=== PATIENT | male | born 1980 | race Two or more races ===

== ENCOUNTER 2017-12-25 02:42 | Emergency (ER) | payer MEDICAID, OTHER ==
[~2017-12-25] VITALS: Ht 170.2 cm; Wt 118.2 kg
[~2017-12-25 02:42] MED LIST: FAMO40TA59 PO; NO HOME MEDS
[2017-12-25 03:08] VITALS: BP 136/97
== END 2017-12-25 04:50 | disposition home or self-care (01) ==
LOC: ER 02:43
DX: S00.81XA Abrasion of other part of head, initial encounter (principal); Z79.899 Other long term (current) drug therapy; Y04.0XXA Assault by unarmed brawl or fight, initial encounter; Y93.89 Activity, other specified; Y92.89 Other specified places as the place of occurrence of the external cause; Y99.8 Other external cause status
CPT/HCPCS: 99283

== ENCOUNTER 2020-04-19 13:20 | Observation (INO) | payer MEDICAID ==
[~2020-04-19] VITALS: Ht 170.2 cm; Wt 129.9 kg
[2020-04-19 15:13] LABS: BASOPHILS # (AUTO) 0.2 X10'3 (0-0.2); BASOPHILS % (AUTO) 1.1 % (0-1); EOSINOPHILS # (AUTO) 0.1 X10'3 (0-0.9); EOSINOPHILS % (AUTO) 0.5 % (0-6); HEMATOCRIT 48.3 % (42.0-52.0); HEMOGLOBIN 16.2 g/dl (14.0-17.9); LYMPHOCYTES # (AUTO) 2.2 X10'3 (1.1-4.8); LYMPHOCYTES % (AUTO) 14.4 % (21-51); MEAN CORPUSCULAR HEMOGLOBIN 29.1 PG (27.0-31.0); MEAN CORPUSCULAR HGB CONC 33.6 g/dL (33.0-36.5); MEAN CORPUSCULAR VOLUME 86.6 FL (78-98); MEAN PLATELET VOLUME 10.3 FL (7.4-10.4); MONOCYTES # (AUTO) 0.8 X10'3 (0-0.9); MONOCYTES % (AUTO) 5.2 % (2-12); NEUTROPHILS # (AUTO) 12.2 X10'3 (1.8-7.7); NEUTROPHILS % (AUTO) 78.8 % (42-75); PLATELET COUNT 299 X10'3 (140-440); RED BLOOD COUNT 5.58 X10'6 (4.70-6.10); RED CELL DISTRIBUTION WIDTH 12.9 % (11.5-14.5); WHITE BLOOD COUNT 15.4 X10'3 (4.5-11.0)
[2020-04-19 15:26] LABS: ALANINE AMINOTRANSFERASE 52 U/L (12-78); ALBUMIN 4.4 G/DL (3.4-5.0); ALBUMIN/GLOBULIN RATIO 1.1 (1.1-1.5); ALKALINE PHOSPHATASE 158 IU/L (46-116); ANION GAP 12 (8-16); ASPARTATE AMINO TRANSFERASE 18 U/L (10-37); BLOOD UREA NITROGEN 10 MG/DL (7-18); BUN/CREATININE RATIO 6.5 (5.4-32.0); CHLORIDE 91 MMOL/L (99-107); CREATININE 1.55 MG/DL (0.60-1.10); SODIUM 126 MMOL/L (135-145); TOTAL CARBON DIOXIDE 22.6 MMOL/L (24-32); TOTAL PROTEIN 8.5 G/DL (6.4-8.2); eGFR 50 ML/MIN
[2020-04-19 15:50] LABS: GLUCOSE 884 MG/DL (70-104)
[2020-04-19] MEDS ORDERED: normal saline 1000ml 1,000 ML IV SCH (15:55)
[2020-04-19] MEDS ORDERED: normal saline 1000ML IV soln IV ONE (15:55)
[2020-04-19] MEDS ORDERED: insulin regular, human 10 units/0.1 ml syringe IV ONE (15:55)
[2020-04-19] MEDS ORDERED: Insulin Reg/NS 100units/100mL 100 ML IV SCH (15:55)
[2020-04-19 16:20] LABS: CLARITY,URINE CLEAR (Clear); COLOR,URINE STRAW (Yellow); GLUCOSE, URINE >=1000 mg/dl (Neg); KETONES,URINE 15 mg/dl (Neg); LEUKOCYTE ESTERASE ,URINE NEGATIVE (Neg); NITRITES, URINE NEGATIVE (Neg); OCCULT BLOOD,URINE TRACE-INTACT (Neg); PH,URINE 5.5 (4.8-8.0); PROTEIN,URINE NEGATIVE (Neg); UROBILINOGEN,URINE 0.2 E.U/dL (0.2-1.0)
[2020-04-19 16:22] LABS: UA COLLECTION TYPE NON-SPECIFIED
[2020-04-19 16:26] LABS: URINE AMPHETAMINE SCREEN NEGATIVE (Neg); URINE BARBITUATE SCREEN NEGATIVE (Neg); URINE BENZODIAZEPINES SCREEN NEGATIVE (Neg); URINE CANNABINOID SCREEN POSITIVE (Neg); URINE COCAINE SCREEN NEGATIVE (Neg); URINE METHADONE SCREEN NEGATIVE (Neg); URINE OPIATE SCREEN NEGATIVE (Neg); URINE PHENCYCLIDINE SCREEN NEGATIVE (Neg)
[2020-04-19 16:27] LABS: BACTERIA,URINE FEW /HPF (Neg); RBC,URINE 0-2 /HPF (0-2); SQUAMOUS EPITHELIAL CELL,UR FEW /LPF (FEW); WBC,URINE 0-4 /HPF (0-4)
[2020-04-19 16:55] LABS: ABG HCO3 20.4 mmol/L (22.0-26.0); ABG OXYGEN SATURATION 93.4 % (94-97); ABG PO2 (T) 67.2 mmHg (75.0-100.0); ALLEN'S TEST POSITIVE; FCOHb 1.4 % (0.0-3.9); FMetHb 0.2 % (0.0-1.5); FO2Hb 91.9 % (94-97); PATIENT TEMPERATURE 37.1
[2020-04-19] MEDS ORDERED: dextrose 50%-water 50ml dispensing syringe IV PRN ×2 (19:20)
[2020-04-19] MEDS ORDERED: magnesium 4gm in 100ml NS 100 ML IV PRN (19:20)
[2020-04-19] MEDS ORDERED: ondansetron/PF 4mg/2ml inj IV PRN (19:20)
[2020-04-19] MEDS ORDERED: glucagon, human recombinant 1mg kit SUBCUT PRN (19:20)
[2020-04-19] MEDS ORDERED: HYDROcodone/acetaminophen 5mg/325mg tablet PO PRN (19:20)
[2020-04-19] MEDS ORDERED: potassium CL 10mEq/100ml bag 100 ML IV PRN ×2 (19:20)
[2020-04-19] MEDS ORDERED: HYDROcodone/acetaminophen 10/325mg tab PO PRN (19:20)
[2020-04-19] MEDS ORDERED: bisacodyl 10mg suppository rectal RC PRN (19:20)
[2020-04-19] MEDS ORDERED: mag hydrox/Alum hydrox/simeth 30ml oral suspension PO PRN (19:20)
[2020-04-19] MEDS ORDERED: magnesium hydroxide 30ml (MOM) UD suspension PO PRN (19:20)
[2020-04-19] MEDS ORDERED: morphine 2 MG/ML inj. syringe IV PRN ×2 (19:20)
[2020-04-19] MEDS ORDERED: magnesium Cl slow-release 64mg tablet PO PRN (19:20)
[2020-04-19] MEDS ORDERED: diphenhydrAMINE 25mg capsule PO PRN (19:20)
[2020-04-19] MEDS ORDERED: magnesium 2GM in 50ml NS 50 ML IV PRN (19:20)
[2020-04-19] MEDS ORDERED: potassium Cl 20 mEq SR tablet PO PRN (19:20)
[2020-04-19] MEDS ORDERED: acetaminophen 650mg rectal suppository RC PRN (19:20)
[2020-04-19] MEDS: normal saline 1000ml 1,000 ML IV SCH (19:20)
[2020-04-19] MEDS ORDERED: acetaminophen 325mg tablet PO PRN ×2 (19:20)
[2020-04-19] MEDS ORDERED: MESSAGE TO PHARMACY PO ONE (19:20)
[2020-04-19] MEDS ORDERED: dextrose ORAL solution 15 GM/59 ML bottle PO PRN ×2 (19:20)
[2020-04-19 19:26] LABS: ANION GAP 7 (8-16); BLOOD UREA NITROGEN 9 MG/DL (7-18); CALCIUM 8.8 MG/DL (8.5-10.1); CHLORIDE 103 MMOL/L (99-107); CREATININE 1.13 MG/DL (0.60-1.10); GLUCOSE 296 MG/DL (70-104); POTASSIUM 3.2 MMOL/L (3.5-5.1); SODIUM 139 MMOL/L (135-145); TOTAL CARBON DIOXIDE 29.1 MMOL/L (24-32); eGFR 72 ML/MIN
[2020-04-19] MEDS: K and/or MAG REPLACEMENT MC SCH (20:00)
[2020-04-19 20:05] LABS: PHOSPHORUS 2.4 MG/DL (2.3-4.5)
[2020-04-19 20:08] LABS: HEMOGLOBIN A1C 9.5 % (4.5-6.2)
[2020-04-19] MEDS ORDERED: insulin glargine (Lantus) pen - multi-dose SQ SCH (21:00)
[2020-04-19] MEDS: insulin Lispro (HumaLOG) vial - multi-dose SQ SCH (21:11)
[2020-04-19] MEDS: heparin, porcine 5000 units/ml vial SQ SCH (21:29)
[2020-04-19 22:22] LABS: ALBUMIN 3.6 G/DL (3.4-5.0); ANION GAP 5 (8-16); BLOOD UREA NITROGEN 9 MG/DL (7-18); BUN/CREATININE RATIO 8.3 (5.4-32.0); CALCIUM 8.2 MG/DL (8.5-10.1); CHLORIDE 103 MMOL/L (99-107); CREATININE 1.09 MG/DL (0.60-1.10); GLUCOSE 332 MG/DL (70-104); POTASSIUM 3.8 MMOL/L (3.5-5.1); SODIUM 137 MMOL/L (135-145); TOTAL CARBON DIOXIDE 28.9 MMOL/L (24-32); eGFR 75 ML/MIN
[2020-04-20] VITALS: BP 143/77
[2020-04-20] MEDS: normal saline 1000ml 1,000 ML IV SCH ×2 (03:50→08:26)
[2020-04-20 04:59] LABS: BASOPHILS # (AUTO) 0.1 X10'3 (0-0.2); EOSINOPHILS # (AUTO) 0.3 X10'3 (0-0.9); NEUTROPHILS % (AUTO) 62.4 % (42-75)
[2020-04-20 05:01] LABS: BASOPHILS % (AUTO) 0.8 % (0-1); EOSINOPHILS % (AUTO) 2.2 % (0-6); HEMATOCRIT 41.5 % (42.0-52.0); HEMOGLOBIN 14.3 g/dl (14.0-17.9); LYMPHOCYTES # (AUTO) 3.8 X10'3 (1.1-4.8); LYMPHOCYTES % (AUTO) 29.4 % (21-51); MEAN CORPUSCULAR HEMOGLOBIN 29.2 PG (27.0-31.0); MEAN CORPUSCULAR HGB CONC 34.4 g/dL (33.0-36.5); MEAN PLATELET VOLUME 9.4 FL (7.4-10.4); MONOCYTES # (AUTO) 0.7 X10'3 (0-0.9); MONOCYTES % (AUTO) 5.2 % (2-12); NEUTROPHILS # (AUTO) 8.1 X10'3 (1.8-7.7); PLATELET COUNT 241 X10'3 (140-440); RED BLOOD COUNT 4.88 X10'6 (4.70-6.10); RED CELL DISTRIBUTION WIDTH 12.8 % (11.5-14.5)
[2020-04-20 05:18] LABS: ALANINE AMINOTRANSFERASE 40 U/L (12-78); ALBUMIN 3.4 G/DL (3.4-5.0); ALKALINE PHOSPHATASE 95 IU/L (46-116); ANION GAP 7 (8-16); ASPARTATE AMINO TRANSFERASE 22 U/L (10-37); BILIRUBIN,TOTAL 0.8 MG/DL (0.1-1.0); BLOOD UREA NITROGEN 10 MG/DL (7-18); BUN/CREATININE RATIO 10.6 (5.4-32.0); CALCIUM 8.2 MG/DL (8.5-10.1); CHLORIDE 102 MMOL/L (99-107); CHOL/HDL RATIO 4.6 (0.00-4.99); CHOLESTEROL 142 MG/DL (0-200); CREATININE 0.94 MG/DL (0.60-1.10); GLUCOSE 303 MG/DL (70-104); HDL CHOLESTEROL 31 MG/DL (35-60); LDL CHOLESTEROL 100 MG/DL (50-100); MAGNESIUM 2.2 MG/DL (1.5-2.4); POTASSIUM 3.3 MMOL/L (3.5-5.1); SODIUM 134 MMOL/L (135-145); TOTAL CARBON DIOXIDE 25.5 MMOL/L (24-32); TOTAL PROTEIN 6.7 G/DL (6.4-8.2); TRIGLYCERIDES 121 MG/DL (20-135); eGFR 89 ML/MIN
[2020-04-20 07:00] VITALS: BP 154/72
[2020-04-20] MEDS: K and/or MAG REPLACEMENT MC SCH (08:00)
[2020-04-20] MEDS: potassium Cl 20 mEq SR tablet PO PRN ×2 (08:24→13:01)
[2020-04-20] MEDS: heparin, porcine 5000 units/ml vial SQ SCH (08:25)
[2020-04-20] MEDS: insulin Lispro (HumaLOG) vial - multi-dose SQ SCH ×2 (08:38→13:26)
[2020-04-20] MEDS ORDERED: lisinopril 20mg tablet PO SCH (09:40)
[2020-04-20 11:00] VITALS: BP 139/87
[2020-04-20 11:38] VITALS: BP_SYST 139
--- NOTE | 2020-04-20 12:20 | NUR ---
DM consult. Newly diagnosed DM. A1c 9.5%; met pt at bedside and given written DM education handout with extensive verbal review re: types of carbs, carb counting, meal planning, exercise, meaning of A1c. Pt verbalized very motivated. Given RD contact information for any additional questions after discharge. Addendum: 04/20/20 at [address] Amended: Links added.
--- NOTE | 2020-04-20 12:36 | NUR ---
Student documentation: I have reviewed all interventions, assessments performed and documented by Chandrika SAXENA from [facility]. Student Medication Administration: For all medication-pass' in the time frame of 6546-8996, all medications were reviewed, dispensed, administered and documented per hospital policy by Chandrika SAXENA from [facility].
[2020-04-20] MEDS ORDERED: METF-950 PO (13:38)
[2020-04-20] MEDS ORDERED: LISI-600 PO (13:38)
[2020-04-20] MEDS ORDERED: LINA5TAB4 PO (13:38)
[2020-04-20] MEDS ORDERED: AMA1T PO (13:38)
--- NOTE | 2020-04-20 13:51 | NUR ---
Paged Dr Herr re pt's home med RX being more than 4400.00 without insurance and unlikely reimbursement if insurance is awarded.
--- NOTE | 2020-04-20 14:13 | NUR ---
returned page and said if medication too expensive w/o insurance that Pt can take the Glimepiride and metformin until Insurance is obtained. He should follow with primary MD. Advised MD Pt did not have a PMD but occasionally uses walk in clinic. insisted that [facility] would follow Pt's DM. Advised Pt to download Good-Rx to obtain discounts until insured.
[2020-04-20] MEDS ORDERED: pneumococcal 23-VAL P-sac vacc 25 mcg/0.5ml vial IMVAC ONE (14:20)
[2020-04-20] MEDS ORDERED: FLU VACC QS2020-21(6MOS UP)/PF 60 MCG/0.5 ML SYRINGE IMVAC ONE (14:20)
== END 2020-04-20 16:39 | disposition home or self-care (01) ==
LOC: ER 13:20 → ED HOLD 19:16 → SUR 3N 22:50
PROVIDERS: ADMIT Family Medicine; ATTEND Family Medicine
DX: E11.65 Type 2 diabetes mellitus with hyperglycemia (principal); E87.1 Hypo-osmolality and hyponatremia; R41.0 Disorientation, unspecified; N17.9 Acute kidney failure, unspecified; H60.91 Unspecified otitis externa, right ear; R35.8 Other polyuria; R63.1 Polydipsia; E66.9 Obesity, unspecified; R20.0 Anesthesia of skin; M50.10 Cervical disc disorder with radiculopathy, unspecified cervical region; D72.829 Elevated white blood cell count, unspecified; E87.2 Acidosis; E86.1 Hypovolemia; F12.20 Cannabis dependence, uncomplicated; Z23 Encounter for immunization; Z79.84 Long term (current) use of oral hypoglycemic drugs; Z79.899 Other long term (current) drug therapy; Z68.41 Body mass index [BMI] 40.0-44.9, adult
CPT/HCPCS: 36415; 36600; 71045; 72040; 80053; 80061; 80305; 81001; 82803; 82948; 83036; 83605; 83735; 84100; 84443; 85018; 85025; 87081; 90471; 90472; 90732; 93005; 93306; 96361; 96365; 96366; 96372; 96376; 99285; G0378; J1644; J1815; J7030; Q2039; 80048

== ENCOUNTER 2021-07-08 16:05 | Emergency (ER) | payer MEDICAID ==
[~2021-07-08] VITALS: Ht 170.2 cm; Wt 113.6 kg
[~2021-07-08 16:05] MED LIST changes: -FAMO40TA59 PO; +LINA5TAB4 PO; +LISI20TA28 PO; -NO HOME MEDS
[2021-07-08] MEDS ORDERED: ringers solution, lactated 1000ml IV soln IV ONE (16:20)
[2021-07-08 16:33] LABS: CLARITY,URINE CLEAR (Clear); COLOR,URINE YELLOW (Yellow); GLUCOSE, URINE >=1000 mg/dl (Neg); KETONES,URINE 40 mg/dl (Neg); LEUKOCYTE ESTERASE ,URINE NEGATIVE (Neg); NITRITES, URINE NEGATIVE (Neg); OCCULT BLOOD,URINE TRACE-INTACT (Neg); PH,URINE 5.5 (4.8-8.0); PROTEIN,URINE NEGATIVE (Neg); UROBILINOGEN,URINE 0.2 E.U/dL (0.2-1.0)
[2021-07-08 16:34] LABS: UA COLLECTION TYPE CLN CATCH MIDSTREAM
[2021-07-08 16:40] LABS: SQUAMOUS EPITHELIAL CELL,UR FEW /LPF (FEW)
[2021-07-08 16:42] LABS: BACTERIA,URINE NONE SEEN /HPF (Neg); RBC,URINE 0-2 /HPF (0-2); WBC,URINE NONE SEEN /HPF (0-4)
[2021-07-08 16:46] LABS: ALANINE AMINOTRANSFERASE 45 U/L (12-78); ALBUMIN 4.3 G/DL (3.4-5.0); ALBUMIN/GLOBULIN RATIO 1.1 (1.1-1.5); ALKALINE PHOSPHATASE 107 IU/L (46-116); ANION GAP 9 (8-16); ASPARTATE AMINO TRANSFERASE 11 U/L (10-37); BILIRUBIN,TOTAL 0.6 MG/DL (0.1-1.0); BLOOD UREA NITROGEN 15 MG/DL (7-18); BUN/CREATININE RATIO 10.3 (5.4-32.0); CALCIUM 8.6 MG/DL (8.5-10.1); CHLORIDE 95 MMOL/L (99-107); CREATININE 1.46 MG/DL (0.60-1.10); LIPASE 88 U/L (73-393); POTASSIUM 3.2 MMOL/L (3.5-5.1); SODIUM 132 MMOL/L (135-145); TOTAL CARBON DIOXIDE 27.7 MMOL/L (24-32); TOTAL PROTEIN 8.2 G/DL (6.4-8.2); eGFR 53 ML/MIN
[2021-07-08 16:50] LABS: GLUCOSE 591 MG/DL (70-104); MEAN CORPUSCULAR VOLUME 87.1 FL (78-98); PLATELET COUNT 292 X10'3 (140-440)
[2021-07-08 16:51] LABS: BASOPHILS % (AUTO) 0.3 % (0-1); EOSINOPHILS # (AUTO) 0.2 X10'3 (0-0.9); EOSINOPHILS % (AUTO) 1.3 % (0-6); HEMATOCRIT 47.2 % (42.0-52.0); HEMOGLOBIN 16.6 g/dl (14.0-17.9); LYMPHOCYTES % (AUTO) 15.8 % (21-51); MEAN CORPUSCULAR HEMOGLOBIN 30.5 PG (27.0-31.0); MEAN PLATELET VOLUME 9.3 FL (7.4-10.4); MONOCYTES # (AUTO) 0.7 X10'3 (0-0.9); NEUTROPHILS # (AUTO) 9.6 X10'3 (1.8-7.7); NEUTROPHILS % (AUTO) 76.6 % (42-75); RED BLOOD COUNT 5.43 X10'6 (4.70-6.10); RED CELL DISTRIBUTION WIDTH 13.3 % (11.5-14.5); WHITE BLOOD COUNT 12.6 X10'3 (4.5-11.0)
[2021-07-08] MEDS ORDERED: normal saline 1000ml 1,000 ML IV ONE ×2 (17:10)
[2021-07-08] MEDS ORDERED: potassium Cl 20 mEq SR tablet PO ONE (17:10)
[2021-07-08] MEDS ORDERED: potassium Cl 10 mEq/100mL bag IV ONE (18:55)
[2021-07-08 19:30] VITALS: BP 160/103
[2021-07-08] MEDS ORDERED: insulin regular, human 10 units/0.1 ml syringe IV ONE (20:35)
== END 2021-07-08 22:26 | disposition home or self-care (01) ==
LOC: ER 16:06
DX: E11.65 Type 2 diabetes mellitus with hyperglycemia (principal); F12.10 Cannabis abuse, uncomplicated
CPT/HCPCS: 36415; 80053; 81001; 82948; 83690; 83735; 85025; 96361; 96374; 96375; 99284; J1815; J3480; J7030

== ENCOUNTER 2023-10-09 00:55 | Emergency (ER) | payer MEDICAID, OTHER ==
[~2023-10-09] VITALS: Ht 167.6 cm; Wt 114.3 kg
[2023-10-09 01:09] VITALS: BP 187/99; PULSE 76; RESP 16; TEMP 98.8; O2SAT 97
== END 2023-10-09 02:59 | disposition left against medical advice (07) ==
LOC: ER 00:56
DX: H92.01 Otalgia, right ear (principal); Z53.21 Procedure and treatment not carried out due to patient leaving prior to being seen by health care provider
CPT/HCPCS: 99281